=== PATIENT | male | born 1955 | race Caucasian/White ===

== ENCOUNTER 2024-04-12 04:28 | Outpatient (CLI) | payer BC, SELFPAY | END 2024-04-12 04:29 | disposition home or self-care (01) | LOC: AMB 04-24 02:08 | PROVIDERS: Visit Provider Family Medicine | DX: R07.89 Other chest pain (principal) | CPT/HCPCS: A0425; A0427 ==

== ENCOUNTER 2024-04-14 10:41 | Outpatient (CLI) | payer BC, SELFPAY | END 2024-04-14 10:42 | disposition home or self-care (01) | LOC: AMB 05-05 05:47 | PROVIDERS: Visit Provider Emergency Medicine Emergency Medical Services | DX: M62.81 Muscle weakness (generalized) (principal); R29.810 Facial weakness | CPT/HCPCS: A0425; A0429 ==

== ENCOUNTER 2025-06-12 12:52 | Outpatient (CLI) | payer MEDICARE, OTHER, SELFPAY | END 2025-06-12 12:53 | disposition home or self-care (01) | LOC: AMB 06-17 14:37 | PROVIDERS: Visit Provider Student in an Organized Health Care Education/Training Program | DX: R55 Syncope and collapse (principal) | CPT/HCPCS: A0425; A0427 ==